=== PATIENT | female | born 1970 | race Caucasian/White ===

== ENCOUNTER 2017-01-08 00:02 | Emergency (ER) | payer MEDICAID, OTHER ==
[~2017-01-08] VITALS: Ht 157.5 cm; Wt 60.0 kg
[~2017-01-08 00:02] MED LIST: DICL75 PO; HYDR-3129 PO; HYDR25 PO; LORTA10 PO; PROM25SU8 PO; SERO200T PO; SOMA350T PO; TOPI50TA4 PO; VENL37.5 PO
[2017-01-08 00:05] VITALS: BP 118/68; PULSE 96; RESP 16; TEMP 97.8
[2017-01-08] MEDS ORDERED: TETANUS/DIPHTHERIA TOXOID ADULT 0.5 ML VIAL IM ONE (01:15)
--- NOTE | 2017-01-08 01:40 | RADRPT ---
EXAM DATE/TIME: 01/08/2017 01:16 [place] COMPARISON: No previous studies available for comparison. INDICATIONS : Left shoulder pain. MEDICAL HISTORY : None. SURGICAL HISTORY : None. ENCOUNTER: Initial ACUITY: 1 day PAIN SCORE: 6/10 LOCATION: Left shoulder. FINDINGS: Multiple view examination of the left shoulder demonstrates no evidence of fracture or dislocation. The glenohumeral and acromioclavicular joints are maintained. There is normal range of motion betwee n internal and external rotation. Bony mineralization is normal. CONCLUSION: Unremarkable examination of the left shoulder. Jaime Brennan MD on January 08, 2017 at 1:38 Board Certified Radiologist. This report was verified electronically.
--- NOTE | 2017-01-08 02:05 | PD ---
HPI Chief Complaint: Fall Time Seen by Provider: 00:44 Travel History International Travel<30 days: No Contact w/Intl Traveler<30days: No Traveled to known affect area: No History of Present Illness HPI 46-year-old female arrives complaining of left heel pain and left shoulder pain. She ran outside of her house, hearing a dog fight. She tripped on a hose and landed on her left shoulder. She feels a popping sensation. Abduction and adduction worsens left shoulder pain. She does make note of the fentanyl patch she uses for tenosynovitis, bursitis, rheumatoid arthritis, and osteoarthritis related pains. She denies loss of consciousness. She denies alcohol abuse. [facility] Past Medical History Anxiety: Yes Depression: Yes (PTSD) Diminished Hearing: No Hypertension: Yes Psychiatric: Yes (PTSD) Immunizations Current: No ?: Not : 3 Para: 1 Miscarriage: 1 : 1 Dilation and Curettage (D&C): Yes Past Surgical History Appendectomy: Yes Section: Yes Cholecystectomy: Yes Social History Alcohol Use: No (QUIT) Tobacco Use: Yes (/2 PPD) Substance Use: No Allergies-Medications (Allergen,Severity, Reaction): Coded Allergies: Flexeril (Verified Adverse Reaction, Intermediate, SHAKY, 01/08/17) Reported Meds & Prescriptions Reported Meds & Active Scripts Active Review of Systems General / Constitutional: No: Fever, Chills Cardiovascular: No: Chest Pain or Discomfort, Palpitations Physical Exam Narrative GENERAL: 46 yo F, mildly anxious, reasonably cooperative SKIN: Warm and dry. approx 3cm laceration L posterior heel. HEAD: Atraumatic. Normocephalic. EYES: Pupils equal and round. No scleral icterus. No injection or drainage. ENT: No nasal bleeding or discharge. Mucous membranes pink and moist. MUSCULOSKELETAL: No obvious deformities. No clubbing. No cyanosis. No edema. Zapata test reveals intact Achilles tendon bilaterally. Range of motion of the left shoulder limited secondary to passage. NEUROLOGICAL: Awake and alert. No obvious cranial nerve deficits. Motor grossly within normal limits. Normal speech. PSYCHIATRIC: Cooperative. Animated affect. Data Data Last Documented VS Vital Signs Date Time Temp Pulse Resp B/P Pulse Ox O2 Delivery O2 Flow Rate FiO2 01/08/17 00:05 97.8 96 16 118/68 Room Air Vital signs reviewed Orders Shoulder, Complete (>2vws) (01/08/17 01:04) Tetanus/Diphtheria Tox Adult (Tetanus/Di (01/08/17 01:15) Ice/Cold Pack (01/08/17 01:04) Splint Or Brace Apply/Monitor (01/08/17 01:04) MDM Medical Decision Making Medical Screen Exam Complete: Yes Emergency Medical Condition: Yes Medical Record Reviewed: Yes Differential Diagnosis Shoulder injury, laceration of the Achilles tendon, superficial heel laceration Narrative Course Sling applied. Laceration repaired. Patient ready for discharge. Diagnosis Primary Impression: Left shoulder pain Qualified Code: M25.512 - Acute pain of left shoulder Additional Impression: Laceration of heel without complication Qualified Code: S91.312A - Laceration of heel without complication, left, initial encounter Referrals: 10 DAY RETURN FOR SUTURE REMOVAL Additional Instructions: You have a choice when it comes to health care, and we are glad that you chose [facility]. Hopefully, we have met your expectations on today's visit. You are welcome to return to [facility] at any time, as we are committed to meeting the health care needs of our community. Med/Other Pt SpecificInfo: No Change to Meds Disposition: 01 DISCHARGE HOME Condition: Jorge Ramirez MD Jan 08, 2017 02:05
--- NOTE | 2017-01-08 02:07 | PD ---
Physical Exam Date Seen by Provider: Jan 08, 2017 Time Seen by Provider: 02:05 Narrative Skin: Patient has a 3 cm laceration to the posterior heel. This is a flap-type laceration into the subcutaneous tissues. No tendon or deep structure injury. No deformity. Data Data Last Documented VS Vital Signs Date Time Temp Pulse Resp B/P Pulse Ox O2 Delivery O2 Flow Rate FiO2 01/08/17 00:05 97.8 96 16 118/68 Room Air Orders Shoulder, Complete (>2vws) (01/08/17 01:04) Tetanus/Diphtheria Tox Adult (Tetanus/Di (01/08/17 01:15) Ice/Cold Pack (01/08/17 01:04) Splint Or Brace Apply/Monitor (01/08/17 01:04) MDM Medical Record Reviewed: Yes Supervised Visit with JENNIFFER: Yes Interpretation(s) Shoulder: Negative for acute fracture, dislocation or subluxation. Differential Diagnosis MDM: High Differential diagnoses: Fracture, sprain, strain, dislocation, contusion, neurovascular injury Narrative Course Patient's laceration is closed with sutures. Procedures Procedure Narrative LACERATION LOCATION: Left posterior heel LENGTH: 3 cm NUMBER OF STITCHES/PERI: 5 REPAIR: The area of the laceration was prepped with Betadine and sterilely draped. The laceration was infiltrated with 1% lidocaine with epinephrine. The wound was copiously irrigated and explored without evidence of foreign body , tendon injury or neurovascular injury. The wound was closed using 3-0 proline. This was a simple single layer repair. A sterile dressing was applied. The patient was advised to keep the dressing clean and dry. Patient tolerated the procedure well. Patient Instructions: General Instructions Additional Instruction: Rest. Elevation. Tylenol and Advil for pain. Daily wound care with soap, water, Neosporin. Sutures out in 14 days. Return to the ER if any problems. Med/Other Pt SpecificInfo: Wound Care Disposition: DISCHARGE HOME Condition: Stable Sterling Carrizales Jan 08, 2017 02:07
== END 2017-01-08 02:32 | disposition home or self-care (01) ==
LOC: NEPE 00:02
DX: M25.512 Pain in left shoulder (principal); S91.319A Laceration without foreign body, unspecified foot, initial encounter; Z23 Encounter for immunization; I10 Essential (primary) hypertension; F43.10 Post-traumatic stress disorder, unspecified; F41.8 Other specified anxiety disorders; F17.210 Nicotine dependence, cigarettes, uncomplicated; W01.0XXA Fall on same level from slipping, tripping and stumbling without subsequent striking against object, initial encounter; Y93.02 Activity, running; Y92.007 Garden or yard of unspecified non-institutional (private) residence as the place of occurrence of the external cause
CPT/HCPCS: 12002; 73030; 90471; 90714

== ENCOUNTER 2017-01-16 21:12 | Emergency (ER) | payer MEDICARE, OTHER ==
[~2017-01-16] VITALS: Ht 157.5 cm; Wt 59.0 kg
[2017-01-16 21:14] VITALS: BP 128/86; PULSE 76; RESP 16; TEMP 98; O2SAT 99
--- NOTE | 2017-01-16 22:38 | PD ---
HPI Chief Complaint: Wound/Suture/Staple Re-Check Time Seen by Provider: 22:36 Travel History International Travel<30 days: No Contact w/Intl Traveler<30days: No Traveled to known affect area: No History of Present Illness HPI 46-year-old white female is here for suture removal from her left heel. She had sutures placed approximately 8-10 days ago. She states that she has had no complaints with it. No discharge. No erythema. No significant pain. PFSH Past Medical History Anxiety: Yes Depression: Yes (PTSD) Diminished Hearing: No Hypertension: Yes Psychiatric: Yes (PTSD) Immunizations Current: No : 3 Para: 1 Miscarriage: 1 : 1 Dilation and Curettage (D&C): Yes Past Surgical History Appendectomy: Yes Section: Yes Cholecystectomy: Yes Social History Alcohol Use: No (QUIT) Tobacco Use: Yes (1/2 PPD) Substance Use: No Allergies-Medications (Allergen,Severity, Reaction): Coded Allergies: Flexeril (Verified Adverse Reaction, Intermediate, SHAKY, 01/16/17) Reported Meds & Prescriptions Reported Meds & Active Scripts Active Review of Systems Except as stated in HPI: all other systems reviewed are Neg Physical Exam Narrative GENERAL: This is a well-nourished, well-developed patient, in no apparent distress. SKIN: No rashes, ecchymoses or lesions. Warm and dry. HEAD: Atraumatic. Normocephalic. EYES: PERRL, EOMI, no discharge or injection. No scleral icterus. EARS: Clear NOSE: Nasal turbinates appear normal. THROAT: Mucosa pink and moist. Airway patent. NECK: Trachea midline. supple, moves head freely. LUNGS: Clear to auscultation. CV: Regular in rhythm. ABDOMEN: Soft nontender. EXT: No clubbing cyanosis or edema. Left arm is in a sling. The left heel has a healing laceration without infection. Sutures in place. Data Data Last Documented VS Vital Signs Date Time Temp Pulse Resp B/P Pulse Ox O2 Delivery O2 Flow Rate FiO2 01/16/17 21:14 98.0 76 16 128/86 99 MDM Medical Decision Making Medical Screen Exam Complete: Yes Emergency Medical Condition: Yes Medical Record Reviewed: Yes Differential Diagnosis Differential diagnoses: Wound infection, healing laceration, suture removal Narrative Course Sutures are removed without incidence. Benzoin and Steri-Strips applied. Diagnosis Primary Impression: Visit for suture removal Patient Instructions: General Instructions Additional Instructions: Rest. Keep clean and dry. Steri-Strips. Follow-up with your doctor as needed. Med/Other Pt SpecificInfo: No Meds Exist/No RX given Disposition: 01 DISCHARGE HOME Condition: Stable Sterling Carrizales Jan 16, 2017 22:38
== END 2017-01-16 23:17 | disposition home or self-care (01) ==
LOC: NEPB 21:12
DX: Z48.01 Encounter for change or removal of surgical wound dressing (principal)
CPT/HCPCS: 99281